=== PATIENT | female | born 1990 | race Caucasian/White ===

== ENCOUNTER 2019-02-19 09:20 | Emergency (ER) | payer MEDICAID, OTHER ==
[~2019-02-19] VITALS: Ht 162.6 cm; Wt 90.7 kg
[2019-02-19 09:27] VITALS: BP 145/67
--- NOTE | 2019-02-19 09:40 | NUR ---
28/F C/O BLE ANKLE PAIN 03/13 & SHARP X 1 DAY. PT STATES SHE JUMPED OFF A ROCK THAT WAS ABOUT 2 FT HIGH AND WHEN SHE LANDED SHE HEARD A POP IN THE R HEEL, AND THEN SHE FELL WHEN SHE STOOD UP AND HURT THE L ANKLE. PT STATES SHE IS UNABLE TO AMBULATE WITHOUT PAIN. MILD SWELLING NOTED. HX: ANXIETY . ER MD MADE AWARE OF PT STATUS.
--- NOTE | 2019-02-19 10:17 | NUR ---
PATIENT TAKEN TO X-RAY.
--- NOTE | 2019-02-19 10:29 | NUR ---
PATIENT RETURNED FROM X-RAY.
[2019-02-19] MEDS ORDERED: KETOROLAC 15 MG/ML VIAL IM ONE (11:20)
--- NOTE | 2019-02-19 12:52 | NUR ---
X RAY AT BEDSIDE
--- NOTE | 2019-02-19 15:25 | NUR ---
pt yelling, screaming, agitated, cussing sts " I have been here for 6 fucking hours. This fucking doctor keeps on ordering xray and not fucking doing anything for me. I want to fucking go home now! " [facility] CALLED.
--- NOTE | 2019-02-19 15:37 | NUR ---
Applied rowan wrap to patients left ankle. Attempted to adjust crutches to patients height she grabbed the crutches and stated "I dont care Im leaving" notified ermd
[2019-02-19 15:41] VITALS: BP 144/62
--- NOTE | 2019-02-19 15:41 | NUR ---
Patient discharged with v/s stable. Written and verbal after care instructions given and explained. Patient alert, oriented and verbalized understanding of instructions. Wheel Chair Assisted with to car. All questions addressed prior to discharge. ID band removed. Patient advised to follow up with PMD.NO Rx given. Patient educated on indication of medication including possible reaction and side effects. Opportunity to ask questions provided and answered.
== END 2019-02-19 15:41 | disposition home or self-care (01) ==
LOC: MED 09:20
DX: S93.401A Sprain of unspecified ligament of right ankle, initial encounter (principal); S93.402A Sprain of unspecified ligament of left ankle, initial encounter; Y93.39 Activity, other involving climbing, rappelling and jumping off; Y93.89 Activity, other specified; Y92.89 Other specified places as the place of occurrence of the external cause; Y99.8 Other external cause status
CPT/HCPCS: 73564; 73590; 73610; 73630; 81002; 81025; 96372; 99283; J1885; Q0092